=== PATIENT | female | born 1975 | race American Indian/Alaskan Native ===

== ENCOUNTER 2017-04-19 10:09 | Outpatient (CLI) | payer BC ==
--- NOTE | 2017-04-19 13:55 | Mammography Report ---
Bilateral Baseline digital screening mammogram with CAD. Findings: In the lateral aspect of the right breast on the CC projection, there is an ill-defined peripheral asymmetry which is incompletely imaged posteriorly. There is no architectural distortion and no suspicious calcifications are seen. No corresponding abnormality is seen on the right MLO projection. The left breast is unremarkable. Impression: Right parenchymal asymmetry. BI-RADS code: 0. Recommendation: Exaggerated lateral CC view, spot compression image, 90 degree view, and ultrasound if needed.
== END 2017-04-19 10:10 | disposition home or self-care (01) ==
LOC: MAMMO 10:09
PROVIDERS: ATTEND Obstetrics & Gynecology
DX: Z12.31 Encounter for screening mammogram for malignant neoplasm of breast (principal)
CPT/HCPCS: 77067; G0202

== ENCOUNTER 2019-11-05 09:04 | Outpatient (CLI) | payer BC ==
--- NOTE | 2019-11-06 10:16 | Mammography Report ---
DIGITAL SCREENING MAMMOGRAM WITH TOMOSYNTHESIS WITH CAD, 11/05/2019 INDICATION: Routine Screening Mammography. SCREENING MAMMOGRAM TECHNIQUE: Digital bilateral 2D and 3D mammography with tomosynthesis was obtained in the craniocau arthur and mediolateral oblique projections. Computer-Aided Detection (CAD) analysis was used for inter pretation of this study. COMPARISON: 11/04/2018 and 04/19/2017 FINDINGS: Breast Density: The breasts are heterogeneously dense, which may obscure small masses. A left 6 mm irregular circumscribed density at 6:30 o'clock approximately 3.5 cm from the nipple (jose ge 20 of the MLO toñito series and image 46 of the CC toñito series) requires additional imaging. No arch itectural distortion or suspicious calcifications of the left breast. There is no evidence of dominan t mass, suspicious calcifications or architectural distortion in the right breast. IMPRESSION: Left focal asymmetry requiring additional workup. Recommend recall for left lateral and s pot magnification views and left breast ultrasound if needed. Follow up recommendation: Special View: Mag Category 0: Incomplete. Needs additional imaging evaluation and/or prior mammograms for comparison. A "normal" or negative report should not discourage follow up or biopsy of a clinically significant f inding. A written summary of these findings will be mailed to the patient. The patient will be entered into a mammography reporting system which will generate a reminder letter for the patient's next appointmen t at the appropriate interval. The [employer] recommends yearly mammograms starting at age 40 and continuing as l kami as a woman is in good health. Breast MRI is recommended for women with an approximate 20-25% or greater lifetime risk of breast cancer, including women with a strong family history of breast or ova britney cancer or who have been treated for Hodgkin's disease. Signer Name: Bhanu Perry MD Signed: 11/06/2019 10:12 AM Workstation Name: [id number]
== END 2019-11-05 09:05 | disposition home or self-care (01) ==
LOC: SPVWC 09:04
PROVIDERS: ATTEND Obstetrics & Gynecology
DX: Z12.31 Encounter for screening mammogram for malignant neoplasm of breast (principal)
CPT/HCPCS: 77063; 77067